=== PATIENT | female | born 1945 | race Caucasian/White ===

== ENCOUNTER → 2017-05-01 | Outpatient (CLI) | payer MEDICARE ==
[~2017-05-01] MED LIST: ADVIL PM CAPLE1 EACH PO; AMARYL4 MG PO; ANTIVERT25 MG PO; ASPIRIN325 MG PO; ATORVASTATIN CA20 MG PO; COZAAR100 MG PO; GLUCOPHAGE1000 MG PO; JANUVIA50 MG PO; LEVEMIR100 UNIT/1 SUB-Q; LIPITOR80 MG; LIPITOR80 MG PO; NORVASC5 MG PO; PROTONIX40 MG PO; TOUJEO SOL300 UNIT/1 SUB-Q; VENLAFAXINE H37.5 MG PO; ZOFRAN ODT4 MG PO; ZOFRAN4 MG PO
== END | disposition disaster alternative care site (69) ==
LOC: GRAD 19:15
DX: R42 Dizziness and giddiness (principal); G93.89 Other specified disorders of brain; G31.9 Degenerative disease of nervous system, unspecified; J98.4 Other disorders of lung; I70.90 Unspecified atherosclerosis; R59.0 Localized enlarged lymph nodes; R91.1 Solitary pulmonary nodule
CPT/HCPCS: Q9967

== ENCOUNTER → 2017-05-01 | Outpatient (CLI) | payer MEDICARE ==
[2017-05-01 16:03] LABS: CPK 87 IU/L (21-215)
== END ==
LOC: LFPA 15:19
PROVIDERS: Nurse Practitioner Family
DX: R42 Dizziness and giddiness (principal)

== ENCOUNTER → 2017-05-02 | Outpatient (CLI) | payer MEDICARE | END | disposition disaster alternative care site (69) | LOC: GRAD 15:31 | DX: I63.50 Cerebral infarction due to unspecified occlusion or stenosis of unspecified cerebral artery (principal) ==